=== PATIENT | female | born 1935 | race Caucasian/White ===

== ENCOUNTER 2023-08-31 12:24 | Emergency (ER) | payer OTHER, MEDICARE ==
[2023-08-31 12:33] VITALS: BP 188/95; PULSE 74; RESP 16; TEMP 98.9; BMI 20.6
== END 2023-08-31 13:24 | disposition home or self-care (01) ==
LOC: FER 12:24
DX: R22.32 Localized swelling, mass and lump, left upper limb (principal); M79.632 Pain in left forearm; L53.9 Erythematous condition, unspecified
CPT/HCPCS: 99282-25